=== PATIENT | male | born 1960 | race Caucasian/White ===

== ENCOUNTER 2022-01-03 13:49 | Emergency (ER) | payer OTHER ==
[~2022-01-03] VITALS: Ht 175.3 cm; Wt 73.5 kg
--- NOTE | 2022-01-03 14:00 | NUR ---
ROGELIOPA FROM HOME C/O SOB AND LOW O2 SATURATION X 3 DAYS,PT IS S/P R LUNG LOBECTOMY AND L LUNG RESSECTION.PT PLACED ON MONITOR . PT IS ON NON REBREATHER 15L O2 SAT 95%. VSS.
--- NOTE | 2022-01-03 14:27 | NUR ---
AT BEDSIDE FOR EVAL.
[2022-01-03 15:43] LABS: BASOPHILS % (AUTO) 0.2 % (0.0-2.0); HEMATOCRIT 34 % (39-51); HEMOGLOBIN 11.2 g/dL (13.5-17.5); LYMPHOCYTES # (AUTO) 0.1 K/uL (0.8-4.8); LYMPHOCYTES % (AUTO) 0.7 % (20.0-44.0); MEAN CORPUSCULAR HGB CONC 34 g/dl (31.0-36.0); MEAN CORPUSCULAR VOLUME 102 fL (80-96); MONOCYTES # (AUTO) 0.3 K/uL (0.1-1.30); MONOCYTES % (AUTO) 2.8 % (2.0-12.0); NEUTROPHILS # (AUTO) 9.9 K/uL (1.8-8.9); NEUTROPHILS % (AUTO) 96.3 % (43.0-81.0); RED BLOOD CELL COUNT(AUTO) 3.28 MIL/uL (4.5-6.0); WHITE BLOOD COUNT (AUTO) 10.2 K/uL (4.3-11.0)
[2022-01-03 15:56] LABS: CALCIUM, SERUM 9.3 mg/dL (8.5-10.1); CREATININE 0.9 mg/dL (0.6-1.3); POTASSIUM 4.4 mmol/L (3.5-5.1)
--- NOTE | 2022-01-03 16:07 | NUR ---
CALLED [facility] [phone] CURRENTLY ON [facility] UNABLE TO ACCEPT PATIENT AT THIS TIME.
[2022-01-03 16:13] LABS: BAND % (MANUAL) 4 % (0.0-5.0); LYMPHOCYTES % (MANUAL) 1 % (16-48); MONOCYTES % (MANUAL) 3 % (0-11.0); NEUTROPHILS % (MANUAL) 92 (42-76)
[2022-01-03 16:17] LABS: PLATELET COUNT (AUTO) 41 K/uL (150-450)
--- NOTE | 2022-01-03 16:52 | NUR ---
[facility] CALLED DIRECTOR [employer]BILE [employer]AG[employer].
--- NOTE | 2022-01-03 17:57 | NUR ---
CALLED [facility] [phone] [place] J SERVICE SPOKE WITH JELLY LOOKING FOR TELE BED. WILL FAX CLINICALS TO [phone]
[2022-01-03] MEDS ORDERED: CEFTRIAXONE 1 G in IV D5W 50 ML IV ONE (18:00)
[2022-01-03] MEDS ORDERED: AZITHROMYCIN 500 MG in IV D5W 250 ML IV ONE (18:00)
[2022-01-03] MEDS ORDERED: CEFTRIAXONE 1GM BAG (ER ONLY) 50 ML IV ONE (18:04)
[2022-01-03] MEDS ORDERED: GABA600T12 PO (18:24)
[2022-01-03] MEDS ORDERED: BENZ200C53 PO (18:24)
[2022-01-03] MEDS ORDERED: ISAV186C2 PO (18:24)
[2022-01-03] MEDS ORDERED: METH-647 PO (18:24)
[2022-01-03] MEDS ORDERED: NALO4SPR NS (18:24)
[2022-01-03] MEDS ORDERED: GUAI-671 PO (18:24)
[2022-01-03] MEDS ORDERED: ONDA4TAB11 PO (18:24)
[2022-01-03] MEDS ORDERED: OXYC5TAB3 PO (18:26)
[2022-01-03] MEDS ORDERED: PRED20TA PO (18:32)
[2022-01-03] MEDS ORDERED: PANT40TA49 PO (18:32)
[2022-01-03] MEDS ORDERED: SULF1TAB48 PO (18:32)
--- NOTE | 2022-01-03 18:35 | NUR ---
DR. PORTILLO AT [facility] ED ACCEPTED PATIENT [id number] [facility] [id number] PLEASE CALL FOR REPORT [phone]
--- NOTE | 2022-01-03 18:49 | NUR ---
[facility] CALLED FOR RT TRANSPORT ETA [phone]
--- NOTE | 2022-01-03 20:13 | NUR ---
REPORT GIVEN TO PANTERA in [facility].
[2022-01-03] MEDS ORDERED: ONDANSETRON HCL/PF 4 MG/2 ML VIAL IV ONE (21:00)
[2022-01-03] MEDS ORDERED: MORPHINE SULFATE INJ 2 MG/ML DISP.SYRIN IV ONE (21:00)
[2022-01-03] MEDS ORDERED: MORPHINE SULFATE INJ 4 MG/ML DISP.SYRIN ONE (21:02)
[2022-01-03] MEDS ORDERED: ONDANSETRON HCL/PF 4 MG/2 ML VIAL ONE (21:02)
[2022-01-03 21:30] VITALS: BP 135/61
--- NOTE | 2022-01-03 21:33 | NUR ---
PT TRANSFERRING TO [facility] WITH RT.
== END 2022-01-03 21:53 | disposition short-term general hospital (02) ==
LOC: ER 13:53
DX: J96.21 Acute and chronic respiratory failure with hypoxia (principal); I21.4 Non-ST elevation (NSTEMI) myocardial infarction; D69.6 Thrombocytopenia, unspecified; C34.12 Malignant neoplasm of upper lobe, left bronchus or lung; R91.8 Other nonspecific abnormal finding of lung field; Z20.822 Contact with and (suspected) exposure to COVID-19; Z90.2 Acquired absence of lung [part of]; R00.0 Tachycardia, unspecified; Z79.899 Other long term (current) drug therapy; I50.9 Heart failure, unspecified; R04.0 Epistaxis
CPT/HCPCS: 36415; 71045; 71275; 80048; 83880; 84484; 85007; 85025; 87081; 87426; 93005; 96365; 96367; 96375; 99291; C9803; J0456; J0696; J2270; J2405; J7050; J7060; Q9967